=== PATIENT | male | born 1990 | race African-American/Black ===

== ENCOUNTER 2018-09-04 08:57 | Emergency (ER) | payer SELFPAY ==
[~2018-09-04] VITALS: Ht 167.6 cm; Wt 74.6 kg
--- NOTE | 2018-09-04 09:17 | NUR ---
PT TO ROOM FROM LOBBY
--- NOTE | 2018-09-04 09:23 | NUR ---
28 Y/O MALE PRESENTS TO ED WITH C/O COUGH N/V "I'VE BEEN SICK FOR ABOUT A WEEK. I'VE HAD A COUGH, SORE THROAT, STUFFY NOSE. OVER THE PAST WEEK I'VE THROWN UP 3-5 TIMES.I THREW UP TODAY AT WORK. AFTER I THREW UP, IT GOT LIGHT HEADED, BUT I'M NOT LIGHT HEADED ANYMORE." PT PLACED ON CONT PULSE OX,NIBP. NO C/O D, TRAUMA, SYNCOPE, CP
[2018-09-04 10:15] VITALS: BP 133/78
== END 2018-09-04 10:17 | disposition home or self-care (01) ==
LOC: ED 10:11
DX: H66.003 Acute suppurative otitis media without spontaneous rupture of ear drum, bilateral (principal); F17.210 Nicotine dependence, cigarettes, uncomplicated
CPT/HCPCS: 71046; 99283

== ENCOUNTER 2018-09-15 15:25 | Emergency (ER) | payer SELFPAY ==
[~2018-09-15] VITALS: Ht 167.6 cm; Wt 74.0 kg
[2018-09-15 15:38] VITALS: BP 133/75
== END 2018-09-15 16:27 | disposition home or self-care (01) ==
LOC: ED 16:05
DX: J02.8 Acute pharyngitis due to other specified organisms (principal); B97.89 Other viral agents as the cause of diseases classified elsewhere; F17.210 Nicotine dependence, cigarettes, uncomplicated
CPT/HCPCS: 71046; 87081; 87880; 99284